=== PATIENT | male | born 1985 | race Caucasian/White ===

== ENCOUNTER 2021-04-29 14:04 | Outpatient (CLI) | payer BC, MEDICAID, SELFPAY ==
--- NOTE | 2021-04-29 14:30 | CT_ITS ---
WS: [id number] Exam: CT chest wo con [id number] Date/Time of Exam: 04/29/2021 2:19 PM Reason For Exam: J93.9 - Pneumothorax, unspecified DLP: 942.[address] scans at [facility] use at least one of these dose optimization techniques: automat ed exposure control; mA and/or kV adjustment per patient size (includes targeted exams where dose is matched to clinical indication); or iterative reconstruction. The lungs are clear and fully expanded. No pneumothorax is seen. There are no infiltrates. The airway is patent. No pleural or pericardial effusion. No significant mediastinal or hilar lymphadenopathy. No destructive bone lesions are chest wall defects. CT sections of the upper abdomen are unremarkable . CT/CT chest wo con [id number] IMPRESSION: 1. Unremarkable noncontrast CT study of the chest. 2. No pneumothorax or other significant finding.
== END 2021-04-29 14:05 | disposition home or self-care (01) ==
PROVIDERS: Visit Provider Registered Nurse
DX: J93.9 Pneumothorax, unspecified (principal)
CPT/HCPCS: 71250

== ENCOUNTER 2022-04-09 19:01 | Emergency (ER) | payer BC, MEDICAID, SELFPAY ==
[2022-04-09 19:31] VITALS: BP 142/88; PULSE 103; RESP 20; TEMP 36.9; O2SAT 99
--- NOTE | 2022-04-09 20:05 | XRR_ITS ---
PROCEDURE INFORMATION: Exam: XR Right Foot Exam date and time: 04/09/2022 10:17 PM Age: 37 years old Clinical indication: Pain; Foot; Right; Additional info: Foot pain TECHNIQUE: Imaging protocol: Radiologic exam of the Right foot. Views: 3 or more views. COMPARISON: No relevant prior studies available. FINDINGS: Bones/joints: Normal. Soft tissues: Normal. XR/XR foot RT min 3V* [id number] IMPRESSION: No acute findings.
--- NOTE | 2022-04-09 21:54 | ED_ITS ---
HPI - Extremity Problem General: Chief complaint: Extremity Injury, Lower Stated complaint: right foot pain Time Seen by Provider: 04/09/22 21:52 History of Present Illness: 37-year-old male comes in today for complaints of pain with redness and swelling to his right foot. Patient reports history of gout. Patient takes no routine medications. Review of Systems General: Reports: 10 or more systems reviewed and unremarkable except in HPI and below Musc: Reports: extremity pain, extremity swelling and joint redness PFSH ED 2 PFSH: Medical History Cervical compression fracture Family History Father Cancer Social History Alcohol intake: current Alcohol intake frequency: few times a week Alcohol type: beer Marital status: Single Sexually active: Yes Current gender identity: Male Physical Exam Const: COMMON NORMALS: alert HENMT: COMMON NORMALS: normocephalic HEAD & SCALP: normocephalic Neck/C-Spine: COMMON NORMALS: full ROM Resp: COMMON NORMALS: normal respiratory effort and clear to auscultation bilaterally AUSCULTATION: clear to auscultation bilaterally Cardio: COMMON NORMALS: regular rate RATE: regular rate Extremity: RIGHT LOWER EXTREMITY: Yes foot & digits (Tenderness and redness to the ankle joint, decreased range of motion) Right ankle: Yes inspection, Yes palpation and Yes ROM and Yes foot & digits Neuro: SENSORIUM/ORIENTATION: Yes alert Course Vital Signs: Vital signs: Vital Signs Temperature 98.5 F 04/09/22 19:31 Pulse Rate 88 04/09/22 22:40 Respiratory Rate 16 04/09/22 22:40 Blood Pressure 132/81 04/09/22 22:40 Pulse Oximetry 99 04/09/22 22:40 MDM - Extremity (Nontraumatic) Medical Decision Making Patient came in for concerns of gout attack. On exam patient has redness and swelling to the right ankle extending down into the foot. Pulses and sensation are intact. Differential diagnosis includes gout attack, cellulitis, arthritis. X-ray of the foot was unremarkable. Patient's has a history of gout and this appears to be an recurrent gout flare. Patient was given a dose of Toradol, 1 hydrocodone tablet, and 10 mg of dexamethasone. Patient will be continued on diclofenac, colchicine, and hydrocodone at home. Reviewed exam with patient with recommendations for treatment and follow-up. Patient reported understanding agreed to plan. Discharge Plan Discharge Patient Disposition: Home Clinical Impression: Gout attack Qualifiers: Gout site: foot Gout etiology: unspecified cause Laterality: right Qualified Code(s): M10.9 - Gout, unspecified Condition: Stable Prescriptions: New diclofenac sodium 75 mg tablet,delayed release (DR/EC) 75 mg PO BID Qty: 30 0RF Rx Instructions: hold meloxicam and other NSAIDS while using colchicine 0.6 mg tablet 1.8 mg PO ONCE Qty: 9 0RF Rx Instructions: Take 2 tabs when you have prescription filled then repeat 1 tablet in 1 hour. You may repeat this in 3 days. hydrocodone-acetaminophen 5-325 mg tablet 1 tab PO Q6H PRN (Reason: pain (scale score 7-10)) Qty: 7 0RF No Action meloxicam 15 mg tablet 15 mg PO DAILY Qty: 30 0RF Discharge Orders: Discharge ED (Routine); Ordered 04/09/22 Ordered By: Vik Hamm Discharge Diet: Usual diet Discharge Activity: Increase activity as tolerated Patient Instructions: Gout (ED), Opioid Safety Activity Restrictions/Additional Instructions: Medications as directed. Drink plenty of water with medicine. Follow-up with primary care for further instructions. Return to ER for new concerns. Stand Alone Forms: Work/School Release Coding Level of Care Code ED Dermatology Nurse for Maximiliano Guo
[2022-04-09] MEDS: HYDROcodone-acetaminophen 7.5-325 mg Tablet 1 TAB PO (22:14)
[2022-04-09] MEDS: dexamethasone 10 mg/mL INJ IM (22:22)
[2022-04-09] MEDS: ketorolac 30 mg/mL INJ IM (22:22)
[2022-04-09 22:40] VITALS: BP 132/81; PULSE 88; RESP 16; O2SAT 99
== END 2022-04-09 22:41 | disposition home or self-care (01) ==
PROVIDERS: Emergency Provider Nurse Practitioner Family
DX: M10.9 Gout, unspecified (principal)
CPT/HCPCS: 73630; 96372; 99284; J1100; J1885

== ENCOUNTER → 2023-01-11 10:05 | Outpatient (BNVA) | payer BC, MEDICAID, SELFPAY | PROVIDERS: Visit Provider Emergency Medicine | DX: M25.551 Pain in right hip (principal) | CPT/HCPCS: 73502 ==